=== PATIENT | female | born 1985 | race Caucasian/White ===

== ENCOUNTER → 2017-07-15 | Outpatient (CLI) | payer OTHER ==
[~2017-07-15] MED LIST: AUG875 PO; CIT20 PO; LEVO100T95 PO; ONDA4TAB97 PO
--- NOTE | 2017-07-15 13:37 | RADIOLOGY IMAGING REPORT ---
FACILITY: [facility] PATIENT NAME: Christal Tesfaye : 1985 MR: [id number] V: [id number] EXAM DATE: ORDERING PHYSICIAN: MAXIME CARTER TECHNOLOGIST: Location: [facility] Patient: Christal Tesfaye : 1985 Visit/Account:[id number] Date of Sevice: 07/15/2017 Exam type: LUMBAR SPINE 2 OR 3 VIEW History: Low back pain no known injury Comparison: None. Findings: There are five nonrib-bearing lumbar-type vertebral bodies present. There is no evidence of acute fr actures or subluxations. There is mild disc space narrowing at L4-5 and L5-S1. IMPRESSION: 1. Mild disc space narrowing at L4-5 and L5-S1. If patient's pain continues MR may be of value Report Dictated By: Zaynab Cui MD at 07/15/2017 1:32 PM Report E-Signed By: Zaynab Cui MD at 07/15/2017 1:33 PM BENJIEN:FEDERICO
== END ==
LOC: RAD 12:13
PROVIDERS: ATTEND Family Medicine
DX: M54.5 Low back pain (principal)
CPT/HCPCS: 72100

== ENCOUNTER → 2018-01-18 | Outpatient (CLI) | payer OTHER ==
--- NOTE | 2018-01-18 16:32 | RADIOLOGY IMAGING REPORT ---
FACILITY: [facility] [place] PATIENT NAME: Christal Tesfaye : 1985 MR: [id number] V: [id number] EXAM DATE: ORDERING PHYSICIAN: MAXIME CARTER TECHNOLOGIST: Location: [facility] Patient: Christal Tesfaye : 1985 Visit/Account:[id number] Date of Sevice: 01/18/2018 EXAMINATION: MRI lumbar spine without IV contrast HISTORY: Low back pain, neuropathy left leg. COMPARISON: Lumbar spine radiographs from 07/15/2017. TECHNIQUE: Multi-planar, multi-sequence lumbar spine MRI was performed without intravenous contrast administration. FINDINGS: Alignment: Normal. Vertebral marrow signal: Mild degenerative marrow edema at L4-5 and L5-S1. Distal thoracic cord: Negative. Conus: negative, terminates at T12-L1. Cauda equina: Negative. Paravertebral soft tissues: Negative. Visualized abdominal and pelvic structures: Negative. Disc spaces: Lower thoracic spine: Normal. L1-2: Normal. L2-3: Normal. L3-4: Disc desiccation with a mild disc bulge eccentric to the left and bilateral facet hypertrophy. Mild left foraminal stenosis without significant central canal stenosis. L4-5: Mild disc space narrowing and desiccation with a broad-based disc protrusion with annular tear and mild bilateral facet hypertrophy. Mild bilateral lateral recess stenosis without significant luigi tral canal or foraminal stenosis. L5-S1: Mild disc space narrowing and desiccation with a broad-based disc protrusion with annular tear , and mild bilateral facet hypertrophy. Mild bilateral lateral recess stenosis, right greater than l eft, and mild bilateral foraminal stenosis. No significant central canal stenosis. The disc contact s both transiting S1 nerve roots, without displacing the nerve roots. IMPRESSION: 1. Degenerative disc disease and facet arthropathy is worst at L5-S1 where there is mild bilateral l ateral recess stenosis and mild bilateral foraminal stenosis. Please see the findings for descriptio n of individual level disease. 2. Annular tears at L4-5 and L5-S1. Report Dictated By: Iris Tong MD at 01/18/2018 4:25 PM Report E-Signed By: Iris Tong MD at 01/18/2018 4:29 PM WSN:[id number]
== END ==
LOC: MRI 01:56
PROVIDERS: ATTEND Family Medicine
DX: M51.37 Other intervertebral disc degeneration, lumbosacral region (principal); M48.07 Spinal stenosis, lumbosacral region
CPT/HCPCS: 72148

== ENCOUNTER → 2018-03-09 | Outpatient (CLI) | payer OTHER | LOC: RESP 20:50 | PROVIDERS: ATTEND Family Medicine | DX: G47.33 Obstructive sleep apnea (adult) (pediatric) (principal); G47.61 Periodic limb movement disorder ==